=== PATIENT | female | born 2000 | race Caucasian/White ===

== ENCOUNTER 2021-06-30 10:43 | Emergency (ER) | payer OTHER, SELFPAY ==
--- NOTE | 2021-06-30 10:55 | ED.URI ---
HPI - URI/Sore Throat General Chief Complaint: Ear Stated Complaint: Ear Pain Time Seen by Provider: 06/30/21 10:56 Source: patient and RN notes reviewed History of Present Illness HPI Narrative: Patient is a 20-year-old female who presents the urgent care with complaints of right ear pain that started at 3 AM. Patient states that her son is positive for influenza A and strep. Patient denies of any other upper respiratory complaints but is concerned with strep as well. Patient has been taking Tylenol for her discomfort. Denies of any recent fevers, nausea or vomiting. No other acute complaints. No acute distress noted. Patient aware of the plan of care. Some parts of this dictation were generated by voice recognition software and may contain typographical and/or grammatical inaccuracies. Related Data Home Medications Medication Instructions Recorded Confirmed norgestimate-ethinyl estradiol 1 tablet PO DAILY 06/30/21 06/30/21 [Estarylla] Allergies Allergy/AdvReac Type Severity Reaction Status Date / Time No Known Allergies Allergy Unknown Unverified 06/30/21 11:06 Review of Systems Review of Systems: CONSTITUTIONAL: Denies fever, chills, or sweats. EYES: Denies visual changes, redness, or discharge. ENT: Denies rhinorrhea, congestion. Reports of right otalgia and mild sore throat CARDIOVASCULAR: Denies chest pain, palpitations, or edema. RESPIRATORY: Denies cough or dyspnea. GASTROINTESTINAL: Denies abdominal pain, nausea, vomiting, or diarrhea. GENITOURINARY: Denies dysuria or hematuria. SKIN: Denies rash or itching. MUSCULOSKELETAL: Denies back pain, joint pain, or myalgia. NEUROLOGIC: Denies headache, numbness, or weakness. All other systems reviewed are negative, except as documented in HPI. PMFSH Comments At the time of my signature, I reviewed and agree with the nursing past medical, surgical, social, and family history. There is no relevant family history pertinent to the patient complaint. Exam Narrative: GENERAL: This is a well-nourished, well-developed patient, in no apparent distress. HEAD: normocephalic, atraumatic. EYES: PERRL. Sclera clear/white. Vision is grossly intact. EARS: External ears normal, auditory canals clear and without drainage, moderately effused/erythemic bulging right TM. Left TM normal without perforation. Hearing grossly intact. NOSE: External nose normal with no obvious nasal discharge, nares without redness, no rhinorrhea. THROAT: Mucous membranes moist, posterior pharynx clear. Mild postnasal drainage NECK: Neck supple CARDIOVASCULAR: Regular rate and rhythm without murmurs, gallops, or rubs. RESPIRATORY: Clear to auscultation. Breath sounds equal bilaterally. No wheezes, rales, or rhonchi. SKIN: warm, intact with no suspicious lesions or rash, good texture and turgor. NEURO: awake, alert, and oriented to person, place and time. There were no obvious focal neurologic abnormalities. EXTREMITIES: No clubbing, cyanosis, or edema. Course Course Level of Care: Express Care Visit Vital Signs Vital signs: Vital Signs Temperature 98.3 F 06/30/21 10:56 Pulse Rate 89 06/30/21 10:56 Respiratory Rate 20 06/30/21 10:56 Blood Pressure 137/80 06/30/21 10:56 Pulse Oximetry 100 06/30/21 10:56 Temperature 98.3 F 06/30/21 11:07 Pulse Rate 89 06/30/21 11:07 Respiratory Rate 20 06/30/21 11:07 Blood Pressure 137/80 06/30/21 11:07 Pulse Oximetry 100 06/30/21 11:07 Reviewed MDM - URI/Sore Throat MDM Narrative Medical decision making narrative: Advised patient to complete the oral antibiotic regimen for the right ear infection as prescribed. The medication will also cover for any strep throat. Be sure to eat and drink with the medication. Use a daily antihistamine such as Zyrtec/Claritin/Benadryl. Use Tylenol/ibuprofen as needed. Warm compress to the ear for comfort. Make sure to change her toothbrush within 2 to 3 days in case you are tearing stre
[2021-06-30 10:56] VITALS: BP 137/80; PULSE 89; RESP 20; TEMP 36.8; O2SAT 100
[2021-06-30 11:07] VITALS: BP 137/80; PULSE 89; RESP 20; TEMP 36.8; O2SAT 100
== END 2021-06-30 11:30 | disposition home or self-care (01) ==
PROVIDERS: Emergency Provider Nurse Practitioner Family; PCP Family Medicine
DX: H66.91 Otitis media, unspecified, right ear (principal)
CPT/HCPCS: 99203; G0463

== ENCOUNTER 2022-03-25 13:32 | Emergency (ER) | payer OTHER, SELFPAY ==
[2022-03-25 13:42] VITALS: BP 123/96; PULSE 139; RESP 16; TEMP 37.9; O2SAT 100
--- NOTE | 2022-03-25 14:29 | ED.URI ---
HPI - URI/Sore Throat General Chief Complaint: Upper Respiratory Infection Stated Complaint: Sore Throat/Body Aches Time Seen by Provider: 03/25/22 14:29 Source: patient, RN notes reviewed and old records reviewed Mode of arrival: ambulatory Limitations: no limitations History of Present Illness HPI Narrative: 21 year old female who presents to [facility] care with complaints of runny nose, body aches and chills with no known prior fevers since last night. Patient states some cough and feelings of congestions. Patient denies any ear pain or any shortness of breath or wheezing, does state mild sore throat but feels it is from sinus drainage. Patient has had COVID vaccinations but has not had flu shot. Patient has not taken anything OTC for her symptoms MD elicited complaint: cough, rhinorrhea, nasal congestion and other (chills and body aches.) Pertinent past history: seasonal allergies Onset (ago): day(s) (last night) Pain scale (0-10): 3 Treatments prior to arrival: none Related Data Home Medications Medication Instructions Recorded Confirmed norgestimate 0.25 mg-ethinyl 1 tablet PO DAILY 06/30/21 03/25/22 estradiol 35 mcg tablet (Estarylla) Allergies Allergy/AdvReac Type Severity Reaction Status Date / Time No Known Allergies Allergy Unknown Unverified 03/25/22 13:52 Review of Systems Review of Systems: CONSTITUTIONAL:Reports malaise, chills, sweats, no known fever. EYES: Denies visual changes, redness, or discharge. ENT: Reports rhinorrhea, congestion, no sinus pain,no otalgia and mild sore throat. CARDIOVASCULAR: Denies chest pain, palpitations, or edema. RESPIRATORY: Reports cough.? Denies dyspnea. GASTROINTESTINAL: Denies abdominal pain, nausea, vomiting, diarrhea SKIN: Denies rash or itching. MUSCULOSKELETAL:Reports myalgia NEUROLOGIC: Denies headache. All systems reviewed & are unremarkable except as noted in HPI and below PMFSH Past Medical History Medical History (Updated 03/27/22 @ 17:36 by Jennifer Silvestre NP) Seasonal allergies SVT (supraventricular tachycardia) Social History Social History (Updated 03/27/22 @ 17:37 by Jennifer Silvestre NP) Smoking status: Never smoker Gender identity (if verbalized by the patient): Female Comments At time of signature, agree with nursing past medical, surgical, social and family history. There is no relevant family history pertinent to the presenting complaint Exam Narrative: GENERAL: Well-appearing, well-nourished, and in no acute distress. HEAD: Normocephalic EYES: PERRLA, conjunctivae clear ENT: Nares clear, turbinates edematous and erythematous, clear discharge. Mucous membranes moist. TM pearly lyles with dull light reflex bilaterally; no tragal tenderness. Oropharynx erythematous without lesions. Tonsils not enlarged and without exudate, no drooling, no hoarseness, no trismus, uvula midline.post nasal drainage NECK: Supple. No lymphadenopathy CHEST: Clear to auscultation, breath sounds equal. No wheezing, rhonchi, rales, or stridor. No respiratory distress, speaks in full sentences.occasional cough SAO2 100% on room air HEART: Regular rate and rhythm. No murmur heard. SKIN: Warm, dry, no rash. NEURO: Alert and oriented x3. PSYCH: Normal mood and affect Course Course Emergency Course: Patient is aware of diagnosis, understands and agrees to treatment plan.? Anticipatory guidance given.? Patient agrees to follow-up as directed and is aware of reasons to seek care at the emergency department. Portions of this record may have been created with voice recognition software Level of Care: Express Care Visit Vital Signs Vital signs: Vital Signs Temperature 37.9 C H 03/25/22 13:42 Pulse Rate 139 H 03/25/22 13:42 Respiratory Rate 16 03/25/22 13:42 Blood Pressure 123/96 H 03/25/22 13:42 Pulse Oximetry 100 03/25/22 13:42 Oxygen Delivery Room Air 03/25/22 13:42 Temperature 37.9 C H 03/25/22 13
== END 2022-03-25 14:41 | disposition home or self-care (01) ==
PROVIDERS: Emergency Provider Registered Nurse; PCP Family Medicine
DX: J06.9 Acute upper respiratory infection, unspecified (principal); R05.9 Cough, unspecified
CPT/HCPCS: 87804; 99213; G0463

== ENCOUNTER 2022-07-06 09:25 | Emergency (ER) | payer OTHER, SELFPAY ==
[2022-07-06 09:37] VITALS: BP 140/102; PULSE 103; RESP 16; TEMP 36.8; O2SAT 100
--- NOTE | 2022-07-06 10:04 | ED.GENADULT ---
HPI - General Adult General Chief complaint: Upper Respiratory Infection Stated complaint: Exposed to COVID Source: patient Mode of arrival: ambulatory Limitations: no limitations History of Present Illness HPI narrative: Patient presents requesting a COVID test. She indicates she had some sinus congestion and was sneezing last week. She has decreased olfactory sense for the past few days. Her teacher sent an email last night indicating that she tested positive for COVID. Pt would like to have testing performed due to recent symptoms and exposure. Fever, chills, nausea, vomiting, sore throat, cough. Her son did have a cough last week. She is not taking any medication to assist with her symptoms. Related Data Home Medications Medication Instructions Recorded Confirmed norgestimate 0.25 mg-ethinyl 1 tablet PO DAILY 06/30/21 07/06/22 estradiol 35 mcg tablet (Estarylla) Allergies Allergy/AdvReac Type Severity Reaction Status Date / Time No Known Allergies Allergy Unknown Unverified 07/06/22 09:41 Review of Systems Review of Systems: CONSTITUTIONAL: Denies fever, chills, or sweats. EYES: Denies visual changes, redness, or discharge. ENT: Reports decreased olfactory sense. Reports sinus congestion and sneezing. Denies rhinorrhea,sore throat, or otalgia. CARDIOVASCULAR: Denies chest pain, palpitations, or edema. RESPIRATORY: Denies cough or dyspnea. GASTROINTESTINAL: Denies abdominal pain, nausea, vomiting, or diarrhea. GENITOURINARY: Denies dysuria or hematuria. SKIN: Denies rash or itching. MUSCULOSKELETAL: Denies back pain, joint pain, or myalgia. NEUROLOGIC: Denies headache, numbness, dizziness, or weakness. PSYCHIATRIC: Denies anxiety or depression. [facility] Past Medical History Medical History (Updated 07/06/22 @ 10:08 by RICCO Ludwig, RHONDA) Seasonal allergies SVT (supraventricular tachycardia) Surgical History Surgical History No pertinent past surgical history Family History Family History Mother Family history non-contributory Social History Social History Smoking status: Never smoker Substance use: never Occupation/Education: student Gender identity (if verbalized by the patient): Female Spiritual care concerns: No Exam Narrative: GENERAL: Well-appearing, well-nourished, and in no acute distress. HEAD: Normocephalic, atraumatic. EYES: PERRLA and EOMI. ENT: Nares clear, no rhinorrhea or epistaxis. Mucous membranes moist. Oropharynx without tonsillar hypertrophy exudate or other lesions. Bilateral TMs pearly lyles nonbulging NECK: Supple. No adenopathy or masses. No carotid bruits or JVD CHEST: Clear to auscultation. No respiratory distress. No wheezes rales or rhonchi HEART: Regular rate and rhythm. No murmur heard. Normal peripheral pulses. ABDOMEN: Soft, nontender, nondistended, normal active bowel sounds. EXTREMITIES: Normal range of motion. No edema. SKIN: Warm, dry, no rash. NEURO: No focal deficits. Alert and oriented x3. PSYCH: Normal mood and affect. Course Course Emergency Course: This is a 21-year-old female who presented requesting a COVID test. COVID test negative. Increase hydration. [id number] agents for symptom management. Follow up primary provider. Go to the ER for difficulty breathing or worsening symptoms. Patient in agreement with plan care. Level of Care: Express Care Visit Vital Signs Vital signs: Vital Signs Temperature 36.8 C 07/06/22 09:37 Pulse Rate 103 H 07/06/22 09:37 Respiratory Rate 16 07/06/22 09:37 Blood Pressure 140/102 H 07/06/22 09:37 Pulse Oximetry 100 07/06/22 09:37 Oxygen Delivery Room Air 07/06/22 09:37 Temperature 36.8 C 07/06/22 09:37 Pulse Rate 103 H 07/06/22 09:37 Respiratory Rate 16 05
== END 2022-07-06 09:59 | disposition home or self-care (01) ==
PROVIDERS: Emergency Provider Nurse Practitioner; PCP Family Medicine
DX: Z20.822 Contact with and (suspected) exposure to COVID-19 (principal)
CPT/HCPCS: 87426; 99213; C9803; G0463